=== PATIENT | male | born 1960 | race African-American/Black ===

== ENCOUNTER 2016-11-12 15:15 | Emergency (ER) | payer OTHER ==
[~2016-11-12] VITALS: Ht 188 cm; Wt 131.5 kg
[~2016-11-12 15:15] MED LIST: ALBUTEROL SULF8.5 GM INH; CYCLOBENZAPRINE10 MG ORAL; IBUPROFEN600 MG PO; IBUPROFEN800 M1 PO; NORCO 5-325 TA1 EACH ORAL; NORCO1 EA ORAL; NORVASC10 MG ORAL; TAMIFLU75 MG ORAL; TRAMADOL HCL50 MG ORAL
[2016-11-12 15:39] VITALS: BP 143/91
[2016-11-12] MEDS ORDERED: Bacitracin Oint UD TOPIC ONE (15:45)
[2016-11-12] MEDS ORDERED: Lidocaine 1% MPF 10mg/ml 5ml INJ ONE (15:45)
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
[2016-11-12] MEDS ORDERED: IBUPROFEN600 MG ORAL (16:17)
[2016-11-12] MEDS ORDERED: BACITRACIN15 GM TOPIC (16:17)
[2016-11-12 16:25] VITALS: BP 143/91
== END 2016-11-12 16:29 | disposition home or self-care (01) ==
LOC: EMR 15:40
DX: S61.412A Laceration without foreign body of left hand, initial encounter (principal); W45.8XXA Other foreign body or object entering through skin, initial encounter; Y92.89 Other specified places as the place of occurrence of the external cause; I10 Essential (primary) hypertension
CPT/HCPCS: 12002; 29130; 99284; Z7502

== ENCOUNTER 2016-11-19 09:40 | Emergency (ER) | payer OTHER ==
[~2016-11-19] VITALS: Ht 188 cm; Wt 131.5 kg
[~2016-11-19 09:40] MED LIST changes: +BACITRACIN15 GM TOPIC; +IBUPROFEN600 MG ORAL
[2016-11-19 09:59] VITALS: BP 148/107
[2016-11-19] MEDS ORDERED: ALBUTEROL SULF8.5 GM INH (10:03)
--- NOTE | 2016-11-19 10:07 | Emergency Room Report ---
History of Present Illness General Chief Complaint: Wound Recheck/Suture Removal Source: Patient Present Illness HPI Patient presents for evaluation of suture removal Patient had laceration last week on the dorsal part of the left hand Denies any fevers or chills denies any discharge Patient reports that he was using his hands more than he was supposed to And feels that one of the stitches opened up earlier Denies any discharge denies any redness Patient also reported that he had a mild cough Allergies: Coded Allergies: No Known Allergies (Unverified , 03/01/13) Patient History Past Medical History: see triage record Pertinent Family History: none Reviewed Nursing Documentation: PMH: Agreed, PSxH: Agreed Nursing Documentation-PMH Past Medical History: No History, Except For Hx Cardiac Problems: No Hx Hypertension: Yes Hx Pacemaker: No Hx Asthma: No Hx COPD: No Hx Diabetes: No Hx Cancer: No Hx Gastrointestinal Problems: No Hx Dialysis: No Hx Neurological Problems: No Hx Cerebrovascular Accident: No Hx Seizures: No Review of Systems All Other Systems: negative except mentioned in HPI Physical Exam Vital Signs Date Time Temp Pulse Resp B/P Pulse Ox O2 Delivery O2 Flow Rate FiO2 11/19/16 09:54 97.9 65 16 148/107 97 Room Air Sp02 EP Interpretation: reviewed, normal General Appearance: well appearing, no apparent distress Head: normocephalic, atraumatic Eyes: bilateral eye EOMI, bilateral eye PERRL ENT: normal pharynx Neck: supple Respiratory: no respiratory distress, no retraction, crackles - Fine crackle in both lower lobe Cardiovascular #1: regular rate, rhythm Musculoskeletal: normal inspection Neurologic: alert, oriented x3 Skin: other - Sutures in place on the left hand, the distal aspect of the suture appears to have mild dehiscence with one of the stitches opened, the rest of the area appears to be healing appropriately no fluctuance Medical Decision Making Diagnostic Impression: Primary Impression: Encounter for wound re-check Additional Impression: Wound dehiscence ER Course Area was cleansed and prepped The suture that was opened was removed One other suture proximally was removed A small Steri-Strip was applied to the distal aspect of the dehiscent area However there still appears to be healing process and the other sutures were left in place And the patient will return for further evaluation Last Vital Signs Date Time Temp Pulse Resp B/P Pulse Ox O2 Delivery O2 Flow Rate FiO2 11/19/16 09:59 97.9 65 16 148/107 97 Room Air Status: improved Disposition: HOME, SELF-CARE Condition: Improved Scripts Albuterol Sulfate* (ALBUTEROL SULFATE MDI*) 8.5 Gm Hfa.aer.ad 2 PUFF INH Q6H, #1 EA 0 Refills Prov: YASEMIN URIBE D.O. 11/19/16 Patient Instructions: Wound Check Additional Instructions: The lower stitch appears to have opened causing mild dehiscence. One other suture was removed, however the rest are left in place as the area does not appear to be ready for removal. Please return in 5-7 days for evaluation YASEMIN URIBE D.O. Nov 19, 2016 10:07
[2016-11-19 10:13] VITALS: BP 138/99
== END 2016-11-19 10:15 | disposition home or self-care (01) ==
LOC: EMR 10:10
DX: S61.412D Laceration without foreign body of left hand, subsequent encounter (principal); T81.30XA Disruption of wound, unspecified, initial encounter; R05 Cough; I10 Essential (primary) hypertension; X58.XXXD Exposure to other specified factors, subsequent encounter; X58.XXXA Exposure to other specified factors, initial encounter; Y93.9 Activity, unspecified; Y92.9 Unspecified place or not applicable
CPT/HCPCS: 99284

== ENCOUNTER 2017-04-24 16:13 | Emergency (ER) | payer OTHER ==
[~2017-04-24] VITALS: Ht 188 cm; Wt 127.0 kg
[2017-04-24 16:25] VITALS: BP 155/85
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
[2017-04-24] MEDS ORDERED: Tetanus/Diptheria/Pertussis Vaccine 0.5ml Syr IM ONE (17:15)
[2017-04-24] MEDS ORDERED: Hydrogen Peroxide 473ml Bottle TOPIC ONE (17:45)
[2017-04-24] MEDS ORDERED: Norco 5mg/325mg tab ORAL ONE (18:30)
[2017-04-24] MEDS ORDERED: BACITRACIN-P28.35 GM TP (18:39)
[2017-04-24] MEDS ORDERED: CEPHALEXIN500 MG ORAL (18:39)
[2017-04-24] MEDS ORDERED: IBUPROFEN600 MG ORAL (18:39)
[2017-04-24 18:58] VITALS: BP 142/80
--- NOTE | 2017-04-25 12:16 | Diagnostic Imaging Report ---
Indication: Pain Findings: 3 views of the left elbow were obtained. There is no fracture or malalignment. There is soft tissue swelling posteriorly. Osteophytes are present at the articular margins. There is spurring at the triceps insertion. Impression: Olecranon soft tissue swelling. Please correlate clinically. Mild osteoarthrosis
== END 2017-04-24 18:58 | disposition home or self-care (01) ==
LOC: EMR 17:35
DX: S61.211A Laceration without foreign body of left index finger without damage to nail, initial encounter (principal); Z23 Encounter for immunization; S50.02XA Contusion of left elbow, initial encounter; S80.01XA Contusion of right knee, initial encounter; I10 Essential (primary) hypertension; V47.5XXA Car driver injured in collision with fixed or stationary object in traffic accident, initial encounter; Y92.410 Unspecified street and highway as the place of occurrence of the external cause
CPT/HCPCS: 12001; 73080; 90471; 90715; 99284; Z7502

== ENCOUNTER 2017-07-13 19:07 | Emergency (ER) | payer OTHER ==
[~2017-07-13] VITALS: Ht 188 cm; Wt 117.9 kg
[~2017-07-13 19:07] MED LIST changes: +BACITRACIN-P28.35 GM TP; +CEPHALEXIN500 MG ORAL
[2017-07-13 19:33] VITALS: BP 149/79
[2017-07-13] MEDS ORDERED: TESSALON PERLE100 MG ORAL (19:56)
[2017-07-13] MEDS ORDERED: AZITHROMYCIN250 MG ORAL (19:56)
[2017-07-13] MEDS ORDERED: VENTOLIN HFA18 GM INH (19:56)
--- NOTE | 2017-07-13 19:57 | Emergency Room Report ---
History of Present Illness General Chief Complaint: Upper Respiratory Illness Source: Patient Present Illness HPI Patient chief male who presents today with complaints of cough and began 3 weeks ago. She states that she had fever which has since resolved. Taking over -the-counter cough medicine with little relief. He denies any shortness of breath, nausea, vomiting associated symptoms. He has a history of hypertension and denies tobacco, alcohol or drug use. Allergies: Coded Allergies: No Known Allergies (Unverified , 03/01/13) Patient History Reviewed Nursing Documentation: PMH: Agreed, PSxH: Agreed Nursing Documentation-PMH Past Medical History: No History, Except For Hx Cardiac Problems: No Hx Hypertension: Yes Hx Pacemaker: No Hx Asthma: No Hx COPD: No Hx Diabetes: No Hx Cancer: No Hx Gastrointestinal Problems: No Hx Dialysis: No Hx Neurological Problems: No Hx Cerebrovascular Accident: No Hx Seizures: No Review of Systems Respiratory: Reports: cough All Other Systems: negative except mentioned in HPI Physical Exam Vital Signs Date Time Temp Pulse Resp B/P (MAP) Pulse Ox O2 Delivery O2 Flow Rate FiO2 07/13/17 19:21 97.9 81 14 149/79 97 Room Air Sp02 EP Interpretation: reviewed, normal General Appearance: no apparent distress, alert, GCS 15, non-toxic Head: normocephalic, atraumatic Eyes: bilateral eye normal inspection, bilateral eye PERRL ENT: hearing grossly normal, normal pharynx, no angioedema, normal voice, nasal congestion Neck: full range of motion, supple/symm/no masses Respiratory: chest non-tender, lungs clear, normal breath sounds, speaking full sentences Cardiovascular #1: regular rate, rhythm, no edema Cardiovascular #2: 2+ carotid (R), 2+ carotid (L), 2+ radial (R), 2+ radial (L) , 2+ dorsalis pedis (R), 2+ dorsalis pedis (L) Gastrointestinal: normal bowel sounds, non tender, soft, non-distended, no guarding, no rebound Rectal: deferred Genitourinary: normal inspection, no CVA tenderness Musculoskeletal: back normal, gait/station normal, normal range of motion, non- tender, calf tenderness Neurologic: alert, oriented x3, responsive, motor strength/tone normal, sensory intact, speech normal Psychiatric: judgement/insight normal, memory normal, mood/affect normal, no suicidal/homicidal ideation Reflexes: 3+ bicep (R), 3+ bicep (L), 3+ tricep (R), 3+ tricep (L), 3+ knee (R) , 3+ knee (L) Skin: normal color, no rash, warm/dry, well hydrated Lymphatic: no adenopathy Medical Decision Making PA Attestation supervising physician Dr. Sarabia Diagnostic Impression: Primary Impression: Productive cough ER Course Patient with cough for 3 weeks, which he empirically with antibiotics. Vitals are within normal limits. Repeat pulse ox is 96% which is normal on room air. Patient is instructed to follow up with PCP for reevaluation. Patient understands this we will plan Last Vital Signs Date Time Temp Pulse Resp B/P (MAP) Pulse Ox O2 Delivery O2 Flow Rate FiO2 07/13/17 19:33 81 14 Room Air 07/13/17 19:33 97.9 149/79 97 Status: improved Disposition: HOME, SELF-CARE Condition: Stable Scripts Albuterol Sulfate (VENTOLIN HFA) 18 Gm Hfa.aer.ad 1 PUFF INH EVERY 6 HOURS for For Cough, #18 GM 0 Refills Prov: Vanessa Schwab P.A. 07/13/17 Benzonatate* (TESSALON PERLE*) 100 Mg Capsule 100 MG ORAL THREE TIMES A DAY, #20 PERLE Prov: Vanessa Schwab P.A. 07/13/17 Azithromycin* (ZITHROMAX*) 250 Mg Tablet 250 MG ORAL DAILY for 5 Days, #6 TAB Prov: Vanessa Schawb P.A. 07/13/17 Patient Instructions: Cough, Adult, [id number]ub[facility] Vanessa Schwab Jul 13, 2017 19:57
[2017-07-13 20:04] VITALS: BP 149/79
== END 2017-07-13 20:04 | disposition home or self-care (01) ==
LOC: EMR 19:55
DX: R05 Cough (principal); I10 Essential (primary) hypertension
CPT/HCPCS: 99283

== ENCOUNTER 2018-07-27 21:59 | Emergency (ER) | payer OTHER ==
[~2018-07-27] VITALS: Ht 188 cm; Wt 88.9 kg
[~2018-07-27 21:59] MED LIST changes: +AZITHROMYCIN250 MG ORAL; +TESSALON PERLE100 MG ORAL; +VENTOLIN HFA18 GM INH
--- NOTE | 2018-07-27 22:05 | NUR ---
ED Nurse Note: Patient called, not in waiting room.
--- NOTE | 2018-07-27 22:18 | NUR ---
ED Nurse Note: patient presents with complaints of diarrhea vomitting and throat pain 09/27.
[2018-07-27 22:19] VITALS: BP 141/97
[2018-07-27] MEDS ORDERED: NKM (22:20)
[2018-07-27] MEDS ORDERED: Mylanta II UD 30ml ORAL ONE (22:45)
[2018-07-27] MEDS ORDERED: Lidocaine 2% Visc 15ml soln ORAL ONE (22:45)
[2018-07-27] MEDS ORDERED: Dicyclomine HCl 10mg/5ml oral soln ORAL ONE (22:45)
[2018-07-27 23:26] LABS: BASOPHILS % (AUTO) 2.5 % (0.0-2.0); EOSINOPHILS % (AUTO) 2.3 % (0.0-3.0); HEMATOCRIT 41.3 % (42.0-52.0); LYMPHOCYTES % (AUTO) 36.7 % (20.0-45.0); MEAN CORPUSCULAR VOLUME 83 FL (80-99); MONOCYTES % (AUTO) 14.5 % (1.0-10.0); PLATELET COUNT 157 K/UL (150-450); RED BLOOD COUNT 5.01 M/UL (4.70-6.10); RED CELL DISTRIBUTION WIDTH 13.9 % (11.6-14.8); WHITE BLOOD COUNT 5.4 K/UL (4.8-10.8)
[2018-07-27 23:32] LABS: ANION GAP 11 mmol/L (5-15); BLOOD UREA NITROGEN 41 mg/dL (7-18); CALCIUM 8.6 MG/DL (8.5-10.1); CARBON DIOXIDE 23 MMOL/L (21-32); CHLORIDE 105 MMOL/L (98-107); CREATININE 2.7 MG/DL (0.55-1.30); POTASSIUM 2.9 MMOL/L (3.5-5.1); SODIUM 139 MMOL/L (136-145)
[2018-07-27 23:37] LABS: ALANINE AMINOTRANSFERASE 41 U/L (12-78); ALBUMIN/GLOBULIN RATIO 0.6 (1.0-2.7); ALKALINE PHOSPHATASE 100 U/L (46-116); ASPARTATE AMINO TRANSFERASE 50 U/L (15-37); BILIRUBIN,TOTAL 0.3 MG/DL (0.2-1.0)
[2018-07-28 00:16] VITALS: BP 116/92
--- NOTE | 2018-07-28 00:17 | NUR ---
ED Nurse Note: Patient resting comfortably, vital signs stable. no s/s of acute distress.
[2018-07-28] MEDS ORDERED: ONDANSETRON ODT4 MG BC (00:21)
[2018-07-28] MEDS ORDERED: LOPERAMIDE2 MG PO (00:21)
[2018-07-28] MEDS ORDERED: DICYCLOMINE HCL10 MG PO (00:21)
[2018-07-28] MEDS ORDERED: RANITIDINE HCL150 MG ORAL (00:21)
--- NOTE | 2018-07-28 00:32 | NUR ---
ED Nurse Note: Patient discharged in stable condition, A&Ox4, ambulatory with steady gait, IV removed, ID band removed, patient verbalized understanding of discharge instructions. Patient departed with all belongings.
[2018-07-28 00:36] VITALS: BP 116/92
--- NOTE | 2018-07-28 01:20 | Emergency Room Report ---
History of Present Illness General Chief Complaint: Diarrhea Source: Patient Present Illness HPI 57-year-old male presents ED for evaluation. Patient is complaining of diarrhea 4 days. Those multiple loose watery stools. Denies any abdominal pain. Denies any fevers or chills. Describes some scratchiness in his throat and some runny nose and congestion. Denies sick contacts or recent travel. Denies recent antibiotic use. States that he recently used cocaine and states that shortly after he sometimes develops diarrhea but never lasted this long. No other aggravating relieving factors. Denies any other associated symptoms Allergies: Coded Allergies: No Known Allergies (Unverified , 03/01/13) Patient History Past Medical History: HTN Past Surgical History: none Pertinent Family History: none Social History: Reports: drug use; Denies: smoking, alcohol use Immunizations: UTD Reviewed Nursing Documentation: PMH: Agreed; PSxH: Agreed Nursing Documentation-PMH Past Medical History: No History, Except For Hx Cardiac Problems: No Hx Hypertension: Yes Hx Pacemaker: No Hx Asthma: No Hx COPD: No Hx Diabetes: No Hx Cancer: No Hx Gastrointestinal Problems: No Hx Dialysis: No Hx Neurological Problems: No Hx Cerebrovascular Accident: No Hx Seizures: No Review of Systems All Other Systems: negative except mentioned in HPI Physical Exam Vital Signs Date Time Temp Pulse Resp B/P (MAP) Pulse Ox O2 Delivery O2 Flow Rate FiO2 07/27/18 22:13 93 16 138/97 97 Room Air 07/27/18 22:19 98.1 Sp02 EP Interpretation: reviewed, normal General Appearance: no apparent distress, alert, GCS 15, non-toxic Head: normocephalic, atraumatic Eyes: bilateral eye normal inspection, bilateral eye PERRL ENT: hearing grossly normal, normal pharynx, no angioedema, normal voice Neck: full range of motion, supple/symm/no masses Respiratory: chest non-tender, lungs clear, normal breath sounds, speaking full sentences Cardiovascular #1: regular rate, rhythm, no edema Cardiovascular #2: 2+ carotid (R), 2+ carotid (L), 2+ radial (R), 2+ radial (L) , 2+ dorsalis pedis (R), 2+ dorsalis pedis (L) Gastrointestinal: normal bowel sounds, non tender, soft, non-distended, no guarding, no rebound Rectal: deferred Genitourinary: normal inspection, no CVA tenderness Musculoskeletal: back normal, gait/station normal, normal range of motion, non- tender Neurologic: alert, oriented x3, responsive, motor strength/tone normal, sensory intact, speech normal Psychiatric: judgement/insight normal, memory normal, mood/affect normal, no suicidal/homicidal ideation Reflexes: 3+ bicep (R), 3+ bicep (L), 3+ tricep (R), 3+ tricep (L), 3+ knee (R) , 3+ knee (L) Skin: normal color, no rash, warm/dry, well hydrated Lymphatic: no adenopathy Medical Decision Making Diagnostic Impression: Primary Impression: Renal insufficiency Additional Impression: Gastroenteritis ER Course Hospital Course 57-year-old M presents to ED with diarrhea x 4 days differential diagnosis: gastritis, SBO, cholecystits, gastroenteritis Clinical course Patient placed on stretcher. On cardiac cath lab radiology technologist. After initial history and physical I ordered labs, IV fluids, gi cocktail, pepcid Labs - no leukocytosis, K 2.9, Cr 2.7, LFTs normal Discussed findings with the patient. Patient states that he was told by his PMD that he might have some kidney issues but does not know his baseline creatinine. Last labs here in 2016 show creatinine 1.3. Patient declined potassium repletion here. I offered option for admission for IV hydration but patient declined. States he feels better and wants to follow- up with his PMD. Given copies of his labs I feel this is a highly complex case requiring extensive working including EKG/ Rhythm strip, Xray/CT/US, Blood/urine lab work, repeat exams while in ED, and administration of strong opiates/narcotics for pain control, admission to hospital or close patient follow up. Diagnosis - renal insufficiency, gastroenteritis Stable and discharged to home with prescriptions for dicyclomine, zantac, zofran , loperamide. Followup with PMD. Return to ED if symptoms recur or worsen Labs Test 07/27/18 23:00 White Blood Count 5.4 K/UL (4.8-10.8) Red Blood Count 5.01 M/UL (4.70-6.10) Hemoglobin 14.0 G/DL (14.2-18.0) Hematocrit 41.3 % (42.0-52.0) Mean Corpuscular Volume 83 FL (80-99) Mean Corpuscular Hemoglobin 27.9 PG (27.0-31.0) Mean Corpuscular Hemoglobin Concent 33.8 G/DL (32.0-36.0) Red Cell Distribution Width 13.9 % (11.6-14.8) Platelet Count 157 K/UL (150-450) Mean Platelet Volume 7.7 FL (6.5-10.1) Neutrophils (%) (Auto) 44.0 % (45.0-75.0) Lymphocytes (%) (Auto) 36.7 % (20.0-45.0) Monocytes (%) (Auto) 14.5 % (1.0-10.0) Eosinophils (%) (Auto) 2.3 % (0.0-3.0) Basophils (%) (Auto) 2.5 % (0.0-2.0) Sodium Level 139 MMOL/L (136-145) Potassium Level 2.9 MMOL/L (3.5-5.1) Chloride Level 105 MMOL/L (98-107) Carbon Dioxide Level 23 MMOL/L (21-32) Anion Gap 11 mmol/L (5-15) Blood Urea Nitrogen 41 mg/dL (7-18) Creatinine 2.7 MG/DL (0.55-1.30) Estimat Glomerular Filtration Rate 29.8 mL/min (>60) Glucose Level 92 MG/DL (74-106) Calcium Level 8.6 MG/DL (8.5-10.1) Total Bilirubin 0.3 MG/DL (0.2-1.0) Aspartate Amino Transf (AST/SGOT) 50 U/L (15-37) Alanine Aminotransferase (ALT/SGPT) 41 U/L (12-78) Alkaline Phosphatase 100 U/L (46-116) Total Protein 8.2 G/DL (6.4-8.2) Albumin 3.0 G/DL (3.4-5.0) Globulin 5.2 g/dL Albumin/Globulin Ratio 0.6 (1.0-2.7) Lipase 109 U/L (73-393) Last Vital Signs Date Time Temp Pulse Resp B/P (MAP) Pulse Ox O2 Delivery O2 Flow Rate FiO2 07/28/18 00:36 98.1 72 17 116/92 100 Room Air Status: improved Disposition: HOME, SELF-CARE Condition: Stable Scripts Loperamide Hcl (LOPERAMIDE) 2 Mg Capsule 2 MG PO Q6HR for 5 Days, CAP Prov: Kendall Salazar MD 07/28/18 Dicyclomine Hcl* (DICYCLOMINE HCL*) 10 Mg Capsule 10 MG PO QID for 5 Days, CAP Prov: Kendall Salazar MD 07/28/18 Ondansetron Odt* (ZOFRAN ODT*) 4 Mg Tab.rapdis 4 MG BC EVERY 8 HOURS, #10 TAB 0 Refills Prov: Kendall Salazar MD 07/28/18 Ranitidine Hcl* (ZANTAC*) 150 Mg Tablet 150 MG ORAL TWICE A DAY, #30 TAB Prov: Kendall Salazar MD 07/28/18 Patient Instructions: Viral Gastroenteritis, Adult, Acute Kidney Injury Kendall Salazar MD Jul 28, 2018 01:20
== END 2018-07-28 00:29 | disposition home or self-care (01) ==
LOC: EMR 22:36
DX: K52.9 Noninfective gastroenteritis and colitis, unspecified (principal); N28.9 Disorder of kidney and ureter, unspecified; I10 Essential (primary) hypertension
CPT/HCPCS: 36415; 80053; 83690; 85025; 96361; 96374; 96375; 99284; J2405; S0028

== ENCOUNTER 2018-09-24 06:48 | Inpatient (IN) | payer OTHER ==
[2018-09-24] VITALS (20 sets, daily range): BP systolic 98–143; BP diastolic 60–83
[~2018-09-24] VITALS: Ht 188 cm; Wt 92.3 kg
[~2018-09-24 06:48] MED LIST changes: +DICYCLOMINE HCL10 MG PO; +LOPERAMIDE2 MG PO; +NKM; +ONDANSETRON ODT4 MG BC; +RANITIDINE HCL150 MG ORAL
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
[2018-09-24] MEDS ORDERED: LORazepam Inj 2mg/ml 1ml IM ONE (07:00)
[2018-09-24] MEDS ORDERED: DiphenhydrAMINE 50mg/ml Inj IM ONE (07:00)
[2018-09-24] MEDS ORDERED: Haloperidol 5mg/ml Inj IM ONE (07:00)
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
--- NOTE | 2018-09-24 07:05 | NUR ---
HAND-OFF: Report given to ODESSA SALDAÑA.
--- NOTE | 2018-09-24 07:20 | NUR ---
ED Nurse Note: able to draw blood and sent to lab. pt still combative.
--- NOTE | 2018-09-24 07:50 | NUR ---
ED Nurse Note: straight cat inserted and urine collected and was sent to lab. urine appeared to be jelly like in apperance. ermd made aware. will continue to monitor.
[2018-09-24 07:53] LABS: BASOPHILS % (AUTO) 1.7 % (0.0-2.0); EOSINOPHILS % (AUTO) 2.9 % (0.0-3.0); HEMATOCRIT 39.4 % (42.0-52.0); HEMOGLOBIN 13.7 G/DL (14.2-18.0); LYMPHOCYTES % (AUTO) 11.1 % (20.0-45.0); MEAN CORPUSCULAR VOLUME 81 FL (80-99); MONOCYTES % (AUTO) 6.7 % (1.0-10.0); NEUTROPHILS % (AUTO) 77.6 % (45.0-75.0); PLATELET COUNT 194 K/UL (150-450); RED BLOOD COUNT 4.86 M/UL (4.70-6.10); RED CELL DISTRIBUTION WIDTH 12.9 % (11.6-14.8); WHITE BLOOD COUNT 8.7 K/UL (4.8-10.8)
[2018-09-24 08:00] LABS: ANION GAP 19 mmol/L (5-15); BLOOD UREA NITROGEN 25 mg/dL (7-18); CALCIUM 8.6 MG/DL (8.5-10.1); CARBON DIOXIDE 22 MMOL/L (21-32); CHLORIDE 103 MMOL/L (98-107); CREATININE 2.9 MG/DL (0.55-1.30); POTASSIUM 3.2 MMOL/L (3.5-5.1); SODIUM 144 MMOL/L (136-145)
[2018-09-24 08:09] LABS: APPEARANCE,URINE CLEAR; BILIRUBIN, URINE 1+ (NEGATIVE); GLUCOSE, URINE (UA) NEGATIVE (NEGATIVE); KETONES,URINE NEGATIVE (NEGATIVE); LEUKOCYTE ESTERASE ,URINE 1+ (NEGATIVE); NITRITE,URINE NEGATIVE (NEGATIVE); PH,URINE 5 (4.5-8.0); PROTEIN,URINE 3+ (NEGATIVE); UROBILINOGEN,URINE 1 MG/DL (0.0-1.0)
[2018-09-24 08:11] LABS: ALANINE AMINOTRANSFERASE 32 U/L (12-78); ALBUMIN/GLOBULIN RATIO 0.6 (1.0-2.7); ALKALINE PHOSPHATASE 103 U/L (46-116); ASPARTATE AMINO TRANSFERASE 49 U/L (15-37); BILIRUBIN,TOTAL 0.6 MG/DL (0.2-1.0); CREATINE KINASE 670 U/L (26-308)
[2018-09-24 08:18] LABS: COLOR,URINE YELLOW
[2018-09-24] MEDS ORDERED: Midazolam 2mg/2ml Inj IVP ONE (08:30)
--- NOTE | 2018-09-24 09:38 | Diagnostic Imaging Report ---
EXAM: XR Chest, 1 View CLINICAL HISTORY: ALOC TECHNIQUE: Frontal view of the chest. COMPARISON: No relevant prior studies available. FINDINGS: Lungs: Unremarkable. No consolidation. Pleural space: Unremarkable. No pneumothorax. Heart: Mild cardiomegaly. Mediastinum: Unremarkable. Bones/joints: Unremarkable. Vasculature: Mild vascular and interstitial prominence. IMPRESSION: Mild cardiomegaly. Mild vascular and interstitial prominence, may be mild vascular congestion.
--- NOTE | 2018-09-24 10:09 | Diagnostic Imaging Report ---
EXAM: CT Head Without Intravenous Contrast CLINICAL HISTORY: ALOC TECHNIQUE: Axial computed tomography images of the head/brain without intravenous contrast. CTDI is 70.38 mGy and DLP is 1446 mGy-cm. One or more of the following dose reduction techniques were used: automated exposure control, adjustment of the mA and/or kV according to patient size, use of iterative reconstruction technique. COMPARISON: No relevant prior studies available. FINDINGS: No intracranial hemorrhage, abnormal intra- or extra-axial collections or parenchymal lesions are seen. Scattered mild white matter hypoattenuations are present, likely from small vessel disease. The marie- white differentiation is preserved. No evidence of mass effect, midline shift, or edema. The osseous structures are unremarkable. The visualized portions of the paranasal sinuses are clear. Mastoid air cells are clear. IMPRESSION: 1. No acute intracranial process. 2. Mild small vessel disease.
--- NOTE | 2018-09-24 12:30 | NUR ---
ED Nurse Note: pt was admitted to the hospital. report given to rome jackman. pt transfered to room 221.
[2018-09-24] MEDS ORDERED: LORazepam 1mg tab ORAL PRN (14:15)
--- NOTE | 2018-09-24 19:30 | NUR ---
NURSE NOTES: received pt from day shift nurse. pt in bed sleeping, no acute distress noted, no c/o pain no discomfort. safety precaution in place. will continue to monitor.
--- NOTE | 2018-09-24 19:43 | NUR ---
HAND-OFF: Report given to ODESSA Thompson. Plan of care endorsed.
[2018-09-24] MEDS: Heparin 5000 units/ml inj SUBQ SCH (20:50)
[2018-09-25] VITALS: BP 148/82
--- NOTE | 2018-09-25 01:02 | NUR ---
NURSE NOTES: pt sleeping, no acute distress noted, safety precaution in place, will continue to monitor
[2018-09-25 04:00] VITALS: BP 135/86
--- NOTE | 2018-09-25 06:39 | NUR ---
NURSE NOTES: pt remains stable, no change in condition, all needs met during my shift. will endorse to incoming nurse.
--- NOTE | 2018-09-25 07:38 | NUR ---
HAND-OFF: Report given to Jose A.
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
[2018-09-25 08:00] VITALS: BP 150/92
[2018-09-25] MEDS: Aspirin EC 81mg tab ORAL SCH (08:42)
[2018-09-25] MEDS: Heparin 5000 units/ml inj SUBQ SCH ×2 (08:50→20:59)
[2018-09-25 09:01] LABS: ALANINE AMINOTRANSFERASE 32 U/L (12-78); ALBUMIN 2.6 G/DL (3.4-5.0); ALBUMIN/GLOBULIN RATIO 0.6 (1.0-2.7); ALKALINE PHOSPHATASE 79 U/L (46-116); ANION GAP 9 mmol/L (5-15); ASPARTATE AMINO TRANSFERASE 77 U/L (15-37); BILIRUBIN,TOTAL 0.9 MG/DL (0.2-1.0); BLOOD UREA NITROGEN 24 mg/dL (7-18); CALCIUM 8.1 MG/DL (8.5-10.1); CARBON DIOXIDE 28 MMOL/L (21-32); CHLORIDE 108 MMOL/L (98-107); POTASSIUM 3.1 MMOL/L (3.5-5.1); SODIUM 145 MMOL/L (136-145)
--- NOTE | 2018-09-25 09:48 | NUR ---
NURSE NOTES: Endorsed Troponin of 0.[address] Estrada. Per Dr. Estrada, repeat troponin this afternoon. Will carry out orders.
--- NOTE | 2018-09-25 11:00 | NUR ---
NURSE NOTES: Endorsed Potassium of 3.[address]. Estrada, give 30 meq of Kcl PO once. Will carry out order and continue to monitor pt.
[2018-09-25 12:00] VITALS: BP 138/95
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
--- NOTE | 2018-09-25 15:14 | NUR ---
*-* INSURANCE *-* ALL CLINICALS AND REVIEWS FAXED TO: [facility] [place]: [place] P- [phone] F- [phone].......REVIEW/CLINICAL
[2018-09-25 16:00] VITALS: BP 141/94
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
--- NOTE | 2018-09-25 19:25 | NUR ---
HAND-OFF: Report given to ODESSA Thompson. No acute s/s of distress.
--- NOTE | 2018-09-25 19:30 | NUR ---
NURSE NOTES: received pt from day shift nurse. no acute distress noted, no c/o pain or discomfort. safety precaution in place. will continue to monitor.
--- NOTE | 2018-09-25 19:41 | Cardiology Report ---
APPROVED REPORT EKG Measurement Heart [id number] Normal sinus rhythm Left anterior fascicular block Prolonged QT Abnormal ECG
[2018-09-25 20:00] VITALS: BP 154/101
[2018-09-26] VITALS: BP 154/108
[2018-09-26 04:00] VITALS: BP 165/116
--- NOTE | 2018-09-26 05:00 | NUR ---
pt with BP 173/110 clonidine given for high blood pressure
[2018-09-26 06:52] LABS: ALANINE AMINOTRANSFERASE 35 U/L (12-78); ALBUMIN 2.5 G/DL (3.4-5.0); ALBUMIN/GLOBULIN RATIO 0.6 (1.0-2.7); ALKALINE PHOSPHATASE 79 U/L (46-116); ANION GAP 6 mmol/L (5-15); ASPARTATE AMINO TRANSFERASE 90 U/L (15-37); BILIRUBIN,TOTAL 0.7 MG/DL (0.2-1.0); BLOOD UREA NITROGEN 23 mg/dL (7-18); CARBON DIOXIDE 31 MMOL/L (21-32); CHLORIDE 108 MMOL/L (98-107); CREATININE 1.8 MG/DL (0.55-1.30); POTASSIUM 3.3 MMOL/L (3.5-5.1); SODIUM 145 MMOL/L (136-145)
--- NOTE | 2018-09-26 07:35 | NUR ---
HAND-OFF: Report given to ODESSA Stanley.pt in stable condition.
[2018-09-26 08:00] VITALS: BP 159/110
--- NOTE | 2018-09-26 08:04 | NUR ---
NURSE NOTES: Report received from ODESSA Thompson. Observed patient in bed sleeping. Arousable by voice and verbally responsive. Denies pain at this time. No distress noted in room air. IV site intact and patent. Bed in lowest position. Call light within reach. Will continue to monitor.
[2018-09-26] MEDS: Heparin 5000 units/ml inj SUBQ SCH ×2 (08:22→20:54)
--- NOTE | 2018-09-26 08:30 | NUR ---
NURSE NOTES: Called and left message to Dr. Estrada regarding low potassium level. Awaiting for call back.
[2018-09-26] MEDS: Aspirin EC 81mg tab ORAL SCH (09:04)
--- NOTE | 2018-09-26 09:31 | General Progress Note ---
Assessment/Plan Problem List: (1) Hypertension (2) Renal insufficiency ICD Codes: N28.9 - Disorder of kidney and ureter, unspecified SNOMED: 955758066, 174760924 (3) Cocaine abuse ICD Codes: F14.10 - Cocaine abuse, uncomplicated SNOMED: 16083491 (4) Elevated troponin ICD Codes: R74.8 - Abnormal levels of other serum enzymes SNOMED: 706654117, 512582985, 605453148 Status: stable Assessment/Plan cont ivf echo elevated trop likely due to cocaine use Subjective ROS Limited/Unobtainable: No Constitutional: Reports: malaise HEENT: Reports: no symptoms Cardiovascular: Reports: no symptoms Respiratory: Reports: no symptoms Gastrointestinal/Abdominal: Reports: no symptoms Genitourinary: Reports: no symptoms Neurologic/Psychiatric: Reports: no symptoms Endocrine: Reports: no symptoms Hematologic/Lymphatic: Reports: no symptoms Allergies: Coded Allergies: No Known Allergies (Unverified , 03/01/13) UNABLE TO ASSESS (Unverified , 09/25/18) All Systems: reviewed and negative except above Subjective feels sore. no cp/sob Objective Last 24 Hour Vital Signs Date Time Temp Pulse Resp B/P (MAP) Pulse Ox O2 Delivery O2 Flow Rate FiO2 09/26/18 08:00 98.0 58 20 159/110 (126) 98 09/26/18 05:50 165/116 09/26/18 04:00 98.0 68 20 165/116 (132) 97 09/26/18 04:00 60 09/26/18 00:00 98.0 64 20 154/108 (123) 96 09/26/18 00:00 62 09/25/18 21:00 Room Air 09/25/18 20:00 98.0 98 20 154/101 (118) 97 09/25/18 20:00 72 09/25/18 16:00 61 09/25/18 16:00 98.4 67 20 141/94 (110) 96 09/25/18 12:00 98.8 64 20 138/95 (109) 97 09/25/18 12:00 68 Intake and Output 09/25/18 09/26/18 19:00 07:00 Intake Total 1945 ml 1000 ml Output Total 600 ml 600 ml Balance 1345 ml 400 ml Intake Oral 820 ml IV Total 1125 ml 1000 ml Output Urine Total 600 ml 600 ml # Voids 3 Laboratory Tests 09/25/18 18:00: Troponin I 0.117H 09/26/18 05:20: Sodium Level 145, Potassium Level 3.3L, Chloride Level 108H, Carbon Dioxide Level 31, Anion Gap 6, Blood Urea Nitrogen 23H, Creatinine 1.8H, Estimat Glomerular Filtration Rate 47.5, Glucose Level 95, Calcium Level 8.0L, Total Bilirubin 0.7, Aspartate Amino Transf (AST/SGOT) 90H, Alanine Aminotransferase ( ALT/SGPT) 35, Alkaline Phosphatase 79, Total Protein 6.8, Albumin 2.5L, Globulin 4.3, Albumin/Globulin Ratio 0.6L Height (Feet): 6 Height (Inches): 2.00 Weight (Pounds): 220 General Appearance: WD/WN Respiratory/Chest: chest wall non-tender, lungs clear, normal breath sounds Abdomen: normal bowel sounds, non tender, soft Edema: no edema noted Arm (L), no edema noted Arm (R), no edema noted Leg (L), no edema noted Leg (R), no edema noted Pedal (L), no edema noted Pedal (R), no edema noted Generalized Usama Estrada MD Sep 26, 2018 09:31
[2018-09-26 11:40] VITALS: BP 152/105
--- NOTE | 2018-09-26 12:09 | Cardiology Report ---
APPROVED REPORT EXAM: Two-dimensional and M-mode echocardiogram with Doppler and color Doppler. INDICATION Arrhythmia M-Mode DIMENSIONS IVSd1.2 (0.7-1.1cm)Left Atrium (MM)3.7 (1.6-4.0cm) LVDd4.6 (3.5-5.6cm)Aortic Root3.6 (2.0-3.7cm) PWd1.7 (0.7-1.1cm)Aortic Cusp Exc.2.0 (1.5-2.0cm) LVDs3.1 (2.5-4.0cm) PWs2.0 cm Normal left ventricular chamber size, systolic function and wall motion. Left ventricular ejection fraction estimated to be 55-60 %. Mild left ventricular hypertrophy. Anterior Echo-free space, may be due to pericardial fat or effusion. Mild left atrial enlargement. Right atrial size at upper limits of normal. Right ventricular chamber size is within normal limits. Mild focal aortic valve sclerosis with adequate cusp excursion. Mildly thickened mitral valve leaflets with normal excursion. Mild mitral annulus and aortic root calcification. Pulmonic valve not well visualized. Normal tricuspid valve structure. IVC dilated at 3.1 cm with slight physiologic collapse suggestive of increased RA pressure. A color flow and spectral Doppler study was performed and revealed: Mild mitral regurgitation. Mitral diastolic velocities suggest reduced left ventricular relaxation c/w borderline mild LV diastolic dysfunction. Mild tricuspid regurgitation. Tricuspid systolic velocities suggests peak right ventricular systolic pressure of 25 mmHg.
[2018-09-26] MEDS ORDERED: Flonase Nasal Inhaler 16gm NASAL PRN (13:23)
--- NOTE | 2018-09-26 13:49 | NUR ---
*-* INSURANCE *-* ALL CLINICALS have been FAXED TO: [facility] NCM: [place] P- [phone] F- [phone].......REVIEW/CLINICAL
--- NOTE | 2018-09-26 14:01 | NUR ---
CASE MANAGEMENT:REVIEW 09/26/18 SI: ELEVATED TROPONIN. RENAL INSUFF COCAINE USE 98.1 65 20 152/105 99% ON RA K-3.3 BUN+23 CR+1.8 TROPONIN(+) 0.117 IS: NORVASC PO QD ASA PO QD IVF@125/HR HEPARIN SQ Q12 CLONIDINE PO Q4HRS PRN : TELEMETRY
[2018-09-26 15:29] VITALS: BP 152/99
[2018-09-26] MEDS: guaiFENesin ER 600mg tab ORAL SCH (17:11)
--- NOTE | 2018-09-26 19:19 | NUR ---
HAND-OFF: Report given to ODESSA Bañuelos. Stable condition.
--- NOTE | 2018-09-26 19:22 | NUR ---
NURSE NOTES: RECEIVED PATIENT RESTING IN BED, NO COMPLAINTS OF PAIN AT THIS TIME. CALL LIGHT, BEDSIDE TABLE AND URINAL WITHIN REACH, BED IN LOW POSITION. PLAN OF CARE REVIEWED.
[2018-09-26 20:00] VITALS: BP 157/102
[2018-09-27] VITALS: BP 147/99
[2018-09-27 04:00] VITALS: BP 148/89
--- NOTE | 2018-09-27 07:25 | NUR ---
HAND-OFF: Report given to Carroll BERRY RN. PATIENT RESTING IN BED, NO SIGNS OF DISTRESS NOTED.
[2018-09-27 07:32] LABS: ANION GAP 6 mmol/L (5-15); BLOOD UREA NITROGEN 23 mg/dL (7-18); CALCIUM 7.9 MG/DL (8.5-10.1); CARBON DIOXIDE 29 MMOL/L (21-32); CHLORIDE 107 MMOL/L (98-107); CREATININE 1.5 MG/DL (0.55-1.30); POTASSIUM 3.2 MMOL/L (3.5-5.1); SODIUM 142 MMOL/L (136-145)
[2018-09-27] MEDS: Aspirin EC 81mg tab ORAL SCH (08:13)
[2018-09-27] MEDS: Heparin 5000 units/ml inj SUBQ SCH (08:13)
[2018-09-27] MEDS: guaiFENesin ER 600mg tab ORAL SCH (08:13)
[2018-09-27 08:19] VITALS: BP 160/92
--- NOTE | 2018-09-27 09:47 | NUR ---
NURSE NOTES: pt awake alert, aware of dc order, per pt his director of occupational health wont be here til afternoon, dc instructions rendered with verbalized understanding. call light within reach no distress. no sob.
[2018-09-27 11:00] VITALS: BP 156/92
--- NOTE | 2018-09-27 13:00 | NUR ---
NURSE NOTES: pt left in stable condition , iv removed, arm band removed. all belongings with the pt.
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
== END 2018-09-27 11:38 | disposition home or self-care (01) | DRG 469 ==
LOC: EMR 07:15 → EDBEDREQ 08:27 → 2E 10:31 → MERGE 10:31 → 2E 09-25 00:10
DX: N17.9 Acute kidney failure, unspecified (principal); I11.9 Hypertensive heart disease without heart failure; E86.0 Dehydration; F14.10 Cocaine abuse, uncomplicated; R74.9 Abnormal serum enzyme level, unspecified
CPT/HCPCS: 36415; 70450; 71045; 80048; 80053; 80307; 80329; 81003; 82550; 84484; 85025; 93005; 93306; 96361; 96372; 96374; 99291; J2250; J8499

== ENCOUNTER 2018-12-25 20:59 | Emergency (ER) | payer OTHER ==
[~2018-12-25] VITALS: Ht 188 cm; Wt 99.8 kg
[2018-12-25] MEDS ORDERED: Isovue-300 100ml vial INJ PRN (21:15)
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
[2018-12-25 21:20] VITALS: BP 156/106
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
[2018-12-25] MEDS ORDERED: Ketorolac 30mg Inj IV ONE (21:30)
[2018-12-25 22:28] LABS: BASOPHILS % (AUTO) 1.8 % (0.0-2.0); EOSINOPHILS % (AUTO) 3.4 % (0.0-3.0); HEMATOCRIT 32.8 % (42.0-52.0); HEMOGLOBIN 11.3 G/DL (14.2-18.0); LYMPHOCYTES % (AUTO) 44.3 % (20.0-45.0); MEAN CORPUSCULAR VOLUME 82 FL (80-99); NEUTROPHILS % (AUTO) 42.6 % (45.0-75.0); PLATELET COUNT 152 K/UL (150-450); RED BLOOD COUNT 4.02 M/UL (4.70-6.10); RED CELL DISTRIBUTION WIDTH 12.9 % (11.6-14.8); WHITE BLOOD COUNT 5.6 K/UL (4.8-10.8)
[2018-12-25 22:34] LABS: ANION GAP 6 mmol/L (5-15); BLOOD UREA NITROGEN 49 mg/dL (7-18); CALCIUM 8.2 MG/DL (8.5-10.1); CARBON DIOXIDE 30 MMOL/L (21-32); CHLORIDE 108 MMOL/L (98-107); CREATININE 1.6 MG/DL (0.55-1.30); POTASSIUM 3.4 MMOL/L (3.5-5.1); SODIUM 144 MMOL/L (136-145)
[2018-12-25 22:37] LABS: INR 1.1 (0.9-1.1)
[2018-12-25 22:39] LABS: ALANINE AMINOTRANSFERASE 38 U/L (12-78); ALBUMIN 2.6 G/DL (3.4-5.0); ALBUMIN/GLOBULIN RATIO 0.7 (1.0-2.7); ALKALINE PHOSPHATASE 89 U/L (46-116); ASPARTATE AMINO TRANSFERASE 49 U/L (15-37); BILIRUBIN,TOTAL 0.3 MG/DL (0.2-1.0)
[2018-12-25] MEDS ORDERED: VOLTAREN100 G1 TP (23:54)
[2018-12-25] MEDS ORDERED: ACETAMINOPHEN500 M3 ORAL (23:54)
[2018-12-25 23:59] VITALS: BP 156/106
--- NOTE | 2018-12-26 | NUR ---
ER DISCHARGE NOTE: Patient is cleared to be discharged per ERMD, pt is aox4, on room air, with stable vital signs. pt was given dc and prescription instructions, pt was able to verbalize understanding, pt id band and iv site removed without complications. pt is able to ambulate with steady gait. pt took all belongings.
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
--- NOTE | 2018-12-26 11:59 | Diagnostic Imaging Report ---
Indication: Left hand pain Technique: 3 views left hand Comparison: none Findings: There is an acute oblique fracture of the medial corner of the base of the second proximal phalanx. There is a healed fracture deformity of the distal aspect of the third metacarpal. There is an age indeterminate fracture deformity of the scaphoid. This is not well visualized. Small exostosis comes off of the first metacarpal. No other acute fractures. No dislocations. Impression: Positive for acute fracture of the second proximal phalanx Age-indeterminate fracture deformity of the scaphoid. Correlate with clinical history and findings. Old healed third metacarpal fracture Findings discussed by phone with Dr. Hairston in the emergency room at the time of interpretation
--- NOTE | 2018-12-26 13:09 | Cardiology Report ---
APPROVED REPORT EKG Measurement Heart [id number] Normal sinus rhythm Left axis deviation Septal infarct, age undetermined Abnormal ECG
== END 2018-12-26 00:10 | disposition home or self-care (01) ==
LOC: EMR 21:53
DX: S20.219A Contusion of unspecified front wall of thorax, initial encounter (principal); S60.222A Contusion of left hand, initial encounter; I10 Essential (primary) hypertension; V49.9XXA Car occupant (driver) (passenger) injured in unspecified traffic accident, initial encounter; Y92.9 Unspecified place or not applicable
CPT/HCPCS: 36415; 71250; 73130; 80053; 84484; 85025; 85610; 85730; 93005; 96361; 96374; 99284; J1885

== ENCOUNTER 2019-04-21 20:59 | Emergency (ER) | payer OTHER ==
[~2019-04-21] VITALS: Ht 188 cm; Wt 104.3 kg
[~2019-04-21 20:59] MED LIST changes: +ACETAMINOPHEN500 M3 ORAL; +VOLTAREN100 G1 TP
[2019-04-21] MEDS ORDERED: HYDROCODON-ACE1 EA15 ORAL (21:25)
[2019-04-21] MEDS ORDERED: IBUPROFEN600 MG ORAL (21:25)
[2019-04-21] MEDS ORDERED: PREDNISONE20 MG ORAL (21:25)
--- NOTE | 2019-04-21 21:26 | Emergency Room Report ---
History of Present Illness General Chief Complaint: Lower Back Pain or Injury Present Illness HPI This is a 58-year-old male with a history of high blood pressure. He presents with complaint of back pain. Onset for last 2 to 3 weeks. This occurred after he was working on a car in awkward position. He said the pain is to his right lower back. Radiate down his thigh posteriorly. No incontinence of bowel or urine. Pain is sharp. Sometimes when he stepped on his right foot he felt shooting pain. Pain is 8 out of 10. No nausea no vomiting. No trauma. No fever chills. No incontinence of bowel or urine. Denies any other complaint. Allergies: Coded Allergies: No Known Allergies (Unverified , 03/01/13) UNABLE TO ASSESS (Unverified , 09/25/18) Patient History Past Medical History: see triage record, old chart reviewed, HTN Past Surgical History: none Pertinent Family History: none Social History: Reports: smoking Immunizations: other Reviewed Nursing Documentation: PMH: Agreed; PSxH: Agreed Nursing Documentation-PMH Hx Cardiac Problems: No Hx Hypertension: Yes Hx Pacemaker: No Hx Asthma: No Hx COPD: No Hx Diabetes: No Hx Cancer: No Hx Gastrointestinal Problems: No Hx Dialysis: No Hx Neurological Problems: No Hx Cerebrovascular Accident: No Hx Seizures: No Review of Systems Eye: Denies: eye pain, blurred vision ENT: Denies: ear pain, nose congestion, throat swelling Respiratory: Denies: cough, shortness of breath Cardiovascular: Denies: chest pain, palpitations Gastrointestinal: Denies: abdominal pain, diarrhea, nausea, vomiting Musculoskeletal: Reports: back pain; Denies: joint pain Skin: Denies: rash Neurological: Denies: headache, numbness Endocrine: Denies: increased thirst, increased urine Hematologic/Lymphatic: Denies: easy bruising All Other Systems: negative except mentioned in HPI Physical Exam Vital Signs Date Time Temp Pulse Resp B/P (MAP) Pulse Ox O2 Delivery O2 Flow Rate FiO2 04/21/19 21:04 98.4 72 16 136/90 (105) 96 Room Air Vitals unremarkable Sp02 EP Interpretation: reviewed, normal General Appearance: well appearing, no apparent distress, alert Head: normocephalic, atraumatic Eyes: bilateral eye PERRL, bilateral eye EOMI ENT: hearing grossly normal, normal pharynx Neck: full range of motion, supple, no meningismus Respiratory: chest non-tender, lungs clear, normal breath sounds Cardiovascular #1: regular rate, rhythm, no murmur Gastrointestinal: normal bowel sounds, non tender, no mass, no organomegaly, no bruit, non-distended Musculoskeletal: back normal - Tenderness to the right lower paraspinous muscle. Negative straight leg raise., gait/station normal, normal range of motion Psychiatric: mood/affect normal Medical Decision Making Diagnostic Impression: Primary Impression: Low back pain Qualified Codes: M54.41 - Lumbago with sciatica, right side ER Course Patient with symptoms consistent with sciatica. No evidence of cauda equina syndrome, spinal epidural abscess or neoplastic process. Will discharge home. Last Vital Signs Date Time Temp Pulse Resp B/P (MAP) Pulse Ox O2 Delivery O2 Flow Rate FiO2 04/21/19 21:04 98.4 72 16 136/90 (105) 96 Room Air Status: improved Disposition: HOME, SELF-CARE Condition: Stable Scripts Prednisone* (PREDNISONE*) 20 Mg Tablet 40 MG ORAL DAILY, #10 TAB Prov: Roland Tineo MD 04/21/19 Ibuprofen* (MOTRIN*) 600 Mg Tablet 600 MG ORAL THREE TIMES A DAY, #30 TAB 0 Refills Prov: Roland Tineo MD 04/21/19 Hydrocodone/Acetaminophen 5-325* (HYDROCODONE/ACETAMINOPHEN 5-325*) 1 Each Tablet 1 TAB ORAL Q6H PRN for For Pain, #15 TAB 0 Refills Prov: Roland Tineo MD 04/21/19 Additional Instructions: No heavy lifting. Follow-up with your doctor in 7 days. You may need an MRI of your back. Return if symptoms worsen. Roland Tineo MD Apr 21, 2019 21:26
[2019-04-21] MEDS ORDERED: HYDROcodone/Acetamin 5/325 tab ORAL ONE (21:30)
[2019-04-21 21:35] VITALS: BP 136/90
--- NOTE | 2019-04-21 21:35 | NUR ---
ER DISCHARGE NOTE: Patient is cleared to be discharged per ERMD, pt is aox4, on room air, with stable vital signs. pt was given dc and prescription instructions, pt was able to verbalize understanding, pt id band removed without complications. pt is able to ambulate with steady gait. pt took all belongings.
== END 2019-04-21 21:35 | disposition home or self-care (01) ==
LOC: EMR 21:11
DX: M54.41 Lumbago with sciatica, right side (principal); I10 Essential (primary) hypertension; F17.200 Nicotine dependence, unspecified, uncomplicated
CPT/HCPCS: 99282

== ENCOUNTER 2019-05-21 16:49 | Emergency (ER) | payer OTHER ==
[~2019-05-21] VITALS: Ht 188 cm; Wt 104.3 kg
[~2019-05-21 16:49] MED LIST changes: +HYDROCODON-ACE1 EA15 ORAL; +PREDNISONE20 MG ORAL
[2019-05-21 16:57] VITALS: BP 159/100
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
[2019-05-21] MEDS ORDERED: Ketorolac 30mg Inj IM ONE (17:15)
[2019-05-21] MEDS ORDERED: Methocarbamol 750mg tab ORAL ONE (17:15)
--- NOTE | 2019-05-21 18:12 | Emergency Room Report ---
History of Present Illness General Chief Complaint: Pain Source: Patient Present Illness HPI 58-year-old male with history of heavy tobacco smoke and past history of cocaine abuse as well as sciatic pain which was diagnosed with few months ago here complaining of worsening of sciatic pain x3 days. Also reports that he has been feeling cramping in the right lower extremity below the knee feeling burning sensation. Denies tingling and numbness. Rating the pain in the right sciatic nerve X out of X and reports this has been taking ibuprofen with minimal relief. Reports that his primary care physician is in the process of referring him to pain management production support specialist. Patient denies any recent fall or injury. Is sitting or comfortably with stable vital signs. Patient refers has elevated blood pressure which reports that he has not taken his blood pressure medication today. Denies other associated symptoms. Denies saddle paresthesia, urinary or bowel incontinence. Allergies: Coded Allergies: No Known Allergies (Unverified , 03/01/13) UNABLE TO ASSESS (Unverified , 09/25/18) Patient History Past Medical History: see triage record Past Surgical History: unable to obtain Pertinent Family History: none Social History: Reports: smoking Immunizations: UTD Reviewed Nursing Documentation: PMH: Agreed; PSxH: Agreed Nursing Documentation-PMH Past Medical History: No History, Except For Hx Cardiac Problems: No Hx Hypertension: Yes Hx Pacemaker: No Hx Asthma: No Hx COPD: No Hx Diabetes: No Hx Cancer: No Hx Gastrointestinal Problems: No Hx Dialysis: No Hx Neurological Problems: No Hx Cerebrovascular Accident: No Hx Seizures: No Review of Systems All Other Systems: negative except mentioned in HPI Physical Exam Vital Signs Date Time Temp Pulse Resp B/P (MAP) Pulse Ox O2 Delivery O2 Flow Rate FiO2 05/21/19 16:57 97.5 93 18 159/100 (119) 98 Room Air Sp02 EP Interpretation: reviewed, normal General Appearance: no apparent distress, alert, GCS 15, non-toxic Head: normocephalic, atraumatic Eyes: bilateral eye normal inspection, bilateral eye PERRL ENT: hearing grossly normal, normal pharynx, no angioedema, normal voice Neck: full range of motion, supple/symm/no masses Respiratory: chest non-tender, lungs clear, normal breath sounds, no rhonchi, no respiratory distress, no wheezing, speaking full sentences Cardiovascular #1: regular rate, rhythm, no edema, no murmur Cardiovascular #2: 2+ femoral (R), 2+ femoral (L), 2+ dorsalis pedis (R), 2+ dorsalis pedis (L) Gastrointestinal: normal bowel sounds, non tender, soft, non-distended, no guarding, no rebound Rectal: deferred Genitourinary: no CVA tenderness Musculoskeletal: back normal, normal range of motion, digits/nails normal, no calf tenderness, pelvis stable, gait/station normal, Silviano's Sign negative Neurologic: alert, motor strength/tone normal, oriented x3, sensory intact, responsive, speech normal Psychiatric: normal inspection, judgement/insight normal Skin: no rash Lymphatic: no adenopathy Medical Decision Making PA Attestation All my diagnosis and treatment plans were reviewed ad discussed with my supervising physician Dr. Kern Diagnostic Impression: Primary Impression: Chronic sciatica Additional Impression: Muscle spasm of calf ER Course 58-year-old male with history of heavy tobacco smoke and past history of cocaine abuse as well as sciatic pain which was diagnosed with few months ago here complaining of worsening of sciatic pain x3 days. Also reports that he has been feeling cramping in the right lower extremity below the knee feeling burning sensation. Denies tingling and numbness. Rating the pain in the right sciatic nerve X out of X and reports this has been taking ibuprofen with minimal relief. Reports that his primary care physician is in the process of referring him to pain management production support specialist. Patient denies any recent fall or injury. Is sitting or comfortably with stable vital signs. Patient refers has elevated blood pressure which reports that he has not taken his blood pressure medication today. Denies other associated symptoms. Denies saddle paresthesia, urinary or bowel incontinence. Ddx considered but are not limited to: Hip fracture, sciatic pain, DVT, muscle spasm of right lower extremity Vital signs: are WNL, pt. is afebrile H&PE are most consistent with: Chronic sciatica, muscle spasm of calf ORDERS: no Xray needed as pt has chronic pain and no new injury. Venous duplex of right lower extremity, ibuprofen, Robaxin ER intervention: Toradol DISCHARGE: At this time pt. is stable for d/c to home. Will provide printed patient care instructions, and any necessary prescriptions. Care plan and follow up instructions have been discussed with the patient prior to discharge. Patient to follow-up with primary care provider, and if worsening symptoms return to the emergency room. I suggested the patient also requests physical therapy CT/MRI/US Diagnostic Results CT/MRI/US Diagnostic Results : Imaging Test Ordered: venous duplex RLE Impression WNL, no DVT Last Vital Signs Date Time Temp Pulse Resp B/P (MAP) Pulse Ox O2 Delivery O2 Flow Rate FiO2 05/21/19 16:57 97.5 93 18 159/100 98 Room Air Disposition: HOME, SELF-CARE Condition: Stable Scripts Methocarbamol* (ROBAXIN-500*) 500 Mg Tablet 500 MG ORAL TID PRN for For Pain, #15 TAB 0 Refills Prov: Te Broussard 05/21/19 Ibuprofen (Ibu) 800 Mg Tablet 800 MG PO TID, #30 TAB Prov: Te Broussard 05/21/19 Referrals: NON PHYSICIAN (PCP) Patient Instructions: Muscle Cramps and Spasms, [id number], Sciatica, Easy-to -Read Additional Instructions: Take medication as directed, follow-up with your primary care provider for referral to physical therapy, pain management, production support specialist. If worsening symptoms return to the emergency room Te Broussard May 21, 2019 18:12
[2019-05-21] MEDS ORDERED: ROBAXIN-500MG ORAL (18:13)
[2019-05-21] MEDS ORDERED: IBU800 MG PO (18:13)
[2019-05-21 18:23] VITALS: BP 151/93
--- NOTE | 2019-05-21 18:23 | NUR ---
ER DISCHARGE NOTE: Patient is cleared to be discharged per PA, pt is aox4, on room air, with stable vital signs. pt was given dc and prescription instructions, pt was able to verbalize understanding, pt id band removed. pt is able to ambulate with steady gait. pt took all belongings.
--- NOTE | 2019-05-22 11:16 | Diagnostic Imaging Report ---
Indication: Left leg pain Technique: Grayscale and duplex images of the left lower extremity veins Comparison: none Findings: Grayscale place images demonstrate no evidence of intraluminal thrombus. Normal phasic Doppler waveforms, demonstrating normal augmentation response. Normal compressibility. Impression: Negative for left lower extremity deep venous thrombosis This agrees with the preliminary interpretation provided overnight by Dr. Baker
== END 2019-05-21 18:23 | disposition home or self-care (01) ==
LOC: EMR 17:05
DX: M54.30 Sciatica, unspecified side (principal); M62.831 Muscle spasm of calf; F17.200 Nicotine dependence, unspecified, uncomplicated; I10 Essential (primary) hypertension
CPT/HCPCS: 93971; 96372; J1885; Z7502; 99284

== ENCOUNTER 2019-05-31 11:55 | Emergency (ER) | payer OTHER ==
[~2019-05-31] VITALS: Ht 188 cm; Wt 104.3 kg
[~2019-05-31 11:55] MED LIST changes: +IBU800 MG PO; +ROBAXIN-500MG ORAL
[2019-05-31 12:19] VITALS: BP 149/110
--- NOTE | 2019-05-31 12:19 | NUR ---
ED Nurse Note: Pt walked in c/o rt leg pain , Pt states he has a knot below the knee, siatic pain x 1 month. Pt said he was seen here. No SOB. Able to walk with steady gait. VSS.
[2019-05-31] MEDS ORDERED: Ketorolac 30mg Inj IM ONE (13:15)
[2019-05-31] MEDS ORDERED: Methocarbamol 750mg tab ORAL ONE (13:15)
[2019-05-31] MEDS ORDERED: NAPROXEN500 M2 ORAL (13:22)
[2019-05-31] MEDS ORDERED: ROBAXIN-750750 MG PO (13:22)
--- NOTE | 2019-05-31 13:22 | Emergency Room Report ---
History of Present Illness General Chief Complaint: Pain Source: Patient Present Illness HPI 58 YO male presents to the ED c/o right LE 03/29 in severity pain that radiates down from the low back x 1 month. Pt. seen here twice prior for same symptoms. Pt. reports he has not been able to see specialist yet or have MRI due to PCP delay in referral and insurance preauthorization. Pt. denies additional trauma or fall. he denies changes in character of his symptoms. Pt. is requesting pain medication. Pt. states previously rx'd [place] which helped a bit in addition to muscle relaxer and anti-inflammatory at last visit 10 days ago which also provided some relief. Pt. Concerned because he does not have actual dx and "everyone keeps guessing whats wrong with him and treating based on guessing". Denies numbness tingling or loss of sensation or gross motor movements of the extremities, incontinence of bowel or bladder. Denies CP, Palpitations, LOC, AMS , dizziness, Changes in Vision, weakness or a sudden severe headache. Allergies: Coded Allergies: No Known Allergies (Unverified , 08/19/79) Patient History Past Medical History: see triage record Past Surgical History: none Pertinent Family History: none Reviewed Nursing Documentation: PMH: Agreed; PSxH: Agreed Nursing Documentation-PMH Past Medical History: No History, Except For Hx Cardiac Problems: No Hx Hypertension: Yes Hx Pacemaker: No Hx Asthma: No Hx COPD: No Hx Diabetes: No Hx Cancer: No Hx Gastrointestinal Problems: No Hx Dialysis: No Hx Neurological Problems: No Hx Cerebrovascular Accident: No Hx Seizures: No Review of Systems All Other Systems: negative except mentioned in HPI Physical Exam Vital Signs Date Time Temp Pulse Resp B/P (MAP) Pulse Ox O2 Delivery O2 Flow Rate FiO2 05/31/19 12:10 97.5 76 20 149/110 (123) 95 Room Air Sp02 EP Interpretation: reviewed, normal General Appearance: no apparent distress, alert, GCS 15, non-toxic Head: normocephalic, atraumatic Eyes: bilateral eye normal inspection, bilateral eye PERRL ENT: hearing grossly normal, normal voice Neck: full range of motion Respiratory: lungs clear, normal breath sounds, speaking full sentences Cardiovascular #1: regular rate, rhythm, normal capillary refill Cardiovascular #2: 2+ dorsalis pedis (R), 2+ dorsalis pedis (L) Musculoskeletal: normal range of motion, gait/station normal, tender - Right lumbosacral paraspinal and upper gluteal TTP, no midline spinous process ttp. No palpable step-offs or obvious deformities. 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 pt. has some ttp. no obivous deformity, able to bear weight otherwise. no increased laxity of the knee. Neurologic: alert, motor strength/tone normal, oriented x3, sensory intact, responsive, speech normal Psychiatric: judgement/insight normal Skin: no rash, normal color, normal inspection Lymphatic: no adenopathy Medical Decision Making PA Attestation Dr. Granado Is my supervising Physician whom patient management has been discussed with. Diagnostic Impression: Primary Impression: Chronic pain of right lower extremity Additional Impressions: Encounter for medical screening examination Request for narcotic pain medication ER Course 58 YO male presents to the ED c/o right LE 10/10 in severity pain that radiates down from the low back x 1 month. Pt. seen here twice prior for same symptoms. Pt. reports he has not been able to see specialist yet or have MRI due to PCP delay in referral and insurance preauthorization. Pt. denies additional trauma or fall. he denies changes in character of his symptoms. Pt. is requesting pain medication. Pt. states previously rx'd [place] which helped a bit in addition to muscle relaxer and anti-inflammatory at last visit 10 days ago which also provided some relief. Pt. Concerned because he does not have actual dx and "everyone keeps guessing whats wrong with him and treating based on guessing". Denies numbness tingling or loss of sensation or gross motor movements of the extremities, incontinence of bowel or bladder. Denies CP, Palpitations, LOC, AMS , dizziness, Changes in Vision, weakness or a sudden severe headache. Ddx considered but are not limited to Fracture, dislocation, contusion, epidural abscess, Sprain/Strain/Spasm, Sciatic Nerve pain, jacqueline-schlatter disease, Neurofibroma just to name a few. Vital signs: are WNL, pt. is afebrile H&PE are most consistent with right LE pain in the sciatic nerve distribution. No evidence of spinal chord injury/impingement, cauda equina syndrome, or circulatory compromise. No evidence of DVT- reviewed previous imaging 10 days ago which was WNL, as pt. having no changes in sx, there is no unilateral swelling and equal SUZANNA bilaterally no suspicion at this time for acute DVT. NO evidence of infection. Pt. abmulatory on his own without assistance. ORDERS: X-ray not required at this time, no spinous process tenderness ED INTERVENTIONS: -IM Toradol 30mg. -Robaxin 750 PO Re-Evaluation: pt. states his pain has subsided with ED interventions -I do not identify an emergent condition at this time. With current presentation , pt. is stable for close outpatient follow up and conservative treatment. D/ w pt. to return promptly to ED with worsening or new symptoms.- Pt. verbalizes' understanding and agreement with proposed treatment plan. DISCHARGE: At this time pt. is stable for d/c to home. Will provide printed patient care instructions, and any necessary prescriptions. Care plan and follow up instructions have been discussed with the patient prior to discharge. Last Vital Signs Date Time Temp Pulse Resp B/P (MAP) Pulse Ox O2 Delivery O2 Flow Rate FiO2 05/31/19 12:19 97.5 76 20 149/110 95 Room Air Disposition: HOME, SELF-CARE Condition: Stable Scripts Naproxen* (NAPROXEN*) 500 Mg Tablet 500 MG ORAL TWICE A WEEK for 10 Days, #20 TAB 0 Refills Prov: Eleni Hernandez 05/31/19 Methocarbamol* (ROBAXIN-750*) 750 Mg Tablet 750 MG PO QID, #28 TAB 0 Refills Prov: Eleni Hernandez 05/31/19 Referrals: [facility],REFERRING (PCP) Patient Instructions: Medical Screening Exam, Pain Without a Known Cause Additional Instructions: -I do not identify an emergent condition at this time. With current presentation , This patient is stable for close outpatient follow up and conservative treatment to be managed by a Primary care provider or nursing informatics specialist. Take medications as directed. ! Do not drink alcohol, drive, or operate heavy machinery while taking Robaxin as this may cause drowsiness and can impair your judgement. Please be advised that this medication is known to have addictive and drug dependence properties. Follow up with an [facility] in 3-5 days, even if your symptoms have resolved. If symptoms persist MRI may be required at the discretion of your PCP or Ortho Specialist. --Please review [facility] for more expedited evaluation. Return sooner to ED if new symptoms occur, or current symptoms become worse. - Please note that this Emergency Department Report was dictated using [employer] builder technology software, occasionally this can lead to erroneous entry secondary to interpretation by the dictation equipment. Eleni Hernandez May 31, 2019 13:22
[2019-05-31 13:39] VITALS: BP 149/110
--- NOTE | 2019-05-31 13:39 | NUR ---
ED Nurse Note: Pt cleared by [facility] navarrete for discharge. DC instructions was given and explained to pt and verbalized understanding of teachings. Prescription was sent electronically to the pharmacy of choice. All medical deviecs such as ID band removed. Pt is AAO x4, ambulatory and left with all personal belongings.
== END 2019-05-31 13:39 | disposition home or self-care (01) ==
LOC: EMR 12:43
DX: G89.29 Other chronic pain (principal); M79.604 Pain in right leg; Z76.89 Persons encountering health services in other specified circumstances; I10 Essential (primary) hypertension; Z76.0 Encounter for issue of repeat prescription
CPT/HCPCS: 96372; J1885; Z7502; 99283

== ENCOUNTER 2020-09-14 23:13 | Emergency (ER) | payer OTHER ==
[~2020-09-14] VITALS: Ht 188 cm; Wt 99.8 kg
[~2020-09-14 23:13] MED LIST changes: +NAPROXEN500 M2 ORAL; +ROBAXIN-750750 MG PO
[2020-09-14 23:45] VITALS: BP 125/78
--- NOTE | 2020-09-14 23:48 | NUR ---
pt walked into the ed due to groin pain x one week
[2020-09-14] MEDS ORDERED: IBUPROFEN600 M1 ORAL (23:59)
[2020-09-14] MEDS ORDERED: HYDROCODON-ACE1 EA15 ORAL (23:59)
--- NOTE | 2020-09-14 23:59 | Emergency Room Report ---
History of Present Illness General Chief Complaint: Pain Source: Patient Present Illness HPI This is a 59-year-old male with history high blood pressure patient presents with chief complaint of a lump to his left groin area. This occur a week ago. He said he was using a wrench to unlock a log and he felt pain in his left groin. Since then has been getting worse. Now he noticed a mass that goes in and out. Worse with palpation. Worse with movement. Better with certain position. Pain is sharp in nature. 9 out of 10. Denies any other complaint. Allergies: Coded Allergies: No Known Allergies (Unverified , 08/19/79) COVID-19 Screening Contact w/high risk pt: No Experienced COVID-19 symptoms?: No COVID-19 Testing performed HOGSHEAD ROLLER: No Patient History Past Medical History: see triage record, old chart reviewed, HTN Past Surgical History: other Pertinent Family History: none Social History: Denies: smoking Immunizations: other Reviewed Nursing Documentation: PMH: Agreed; PSxH: Agreed Nursing Documentation-PMH Hx Cardiac Problems: No Hx Hypertension: Yes Hx Pacemaker: No Hx Asthma: No Hx COPD: No Hx Diabetes: No Hx Cancer: No Hx Gastrointestinal Problems: No Hx Dialysis: No Hx Neurological Problems: No Hx Cerebrovascular Accident: No Hx Seizures: No Review of Systems Eye: Denies: eye pain, blurred vision ENT: Denies: ear pain, nose congestion, throat swelling Respiratory: Denies: cough, shortness of breath Cardiovascular: Denies: chest pain, palpitations Gastrointestinal: Denies: abdominal pain, diarrhea, nausea, vomiting Musculoskeletal: Denies: back pain, joint pain Skin: Denies: rash Neurological: Denies: headache, numbness Endocrine: Denies: increased thirst, increased urine Hematologic/Lymphatic: Denies: easy bruising All Other Systems: negative except mentioned in HPI Physical Exam Vital Signs Date Time Temp Pulse Resp B/P (MAP) Pulse Ox O2 Delivery O2 Flow Rate FiO2 09/14/20 23:37 98.4 78 19 125/78 (94) 98 Vitals normal Sp02 EP Interpretation: reviewed, normal General Appearance: well appearing, no apparent distress, alert Head: normocephalic, atraumatic Eyes: bilateral eye PERRL, bilateral eye EOMI ENT: hearing grossly normal, normal pharynx Neck: full range of motion, supple, no meningismus Respiratory: chest non-tender, lungs clear, normal breath sounds Cardiovascular #1: regular rate, rhythm, no murmur Gastrointestinal: normal bowel sounds, non tender, no mass, no organomegaly, no bruit, non-distended Genitourinary: other - Left groin: There is a defect to the left groin medially. There is a reducible hernia. Tender to palpation. Musculoskeletal: back normal, normal range of motion, gait/station normal Psychiatric: mood/affect normal Medical Decision Making Diagnostic Impression: Primary Impression: Hernia, inguinal, left ER Course Patient with a left inguinal hernia. No evidence of incarceration or strangulation. Last Vital Signs Date Time Temp Pulse Resp B/P (MAP) Pulse Ox O2 Delivery O2 Flow Rate FiO2 09/14/20 23:45 98.4 19 125/78 98 09/14/20 23:37 78 Status: unchanged Disposition: HOME, SELF-CARE Condition: Stable Scripts Ibuprofen* (MOTRIN*) 600 Mg Tablet 600 MG ORAL Q6H PRN for For Pain, #30 TAB 0 Refills Prov: Roland Tineo MD 09/14/20 Hydrocodone/Acetaminophen 5-325* (HYDROCODONE/ACETAMINOPHEN 5-325*) 1 Each Tablet 1 TAB ORAL Q6H PRN for For Pain, #10 TAB 0 Refills Prov: Roland Tineo MD 09/14/20 Additional Instructions: Follow-up with your doctor in 7 days. You may need referral to see a surgeon for definitive care. Return if worse Roland Tineo MD Sep 14, 2020 23:59
--- NOTE | 2020-09-15 00:03 | NUR ---
Medicated as ordered, tolerated well.
[2020-09-15] MEDS: HYDROcodone/Acetamin 5/325 tab ORAL ONE (00:05)
== END 2020-09-15 00:10 | disposition home or self-care (01) ==
LOC: EMR 23:50
DX: K40.90 Unilateral inguinal hernia, without obstruction or gangrene, not specified as recurrent (principal); I10 Essential (primary) hypertension
CPT/HCPCS: 99282